=== PATIENT | female | born 1930 | race Hispanic/Latino ===

== ENCOUNTER 2019-10-01 14:54 | Inpatient (IN) | payer MEDICARE, OTHER ==
[2019-10-02] MEDS ORDERED: Lisinopril 10 MG TAB PO SCH (11:15)
[2019-10-02] MEDS ORDERED: Potassium Chloride 20 MEQ TAB PO SCH (11:15)
[2019-10-02] MEDS ORDERED: Ferrous Sulfate 325 MG TAB PO SCH (11:15)
[2019-10-02] MEDS ORDERED: Aspirin 81 mg Enteric Coated Tablet PO SCH (11:15)
[2019-10-02] MEDS ORDERED: Furosemide 20 MG TAB PO SCH (11:15)
[2019-10-02] MEDS ORDERED: Azithromycin 250 MG TAB PO SCH (11:15)
[2019-10-02] MEDS ORDERED: Prevnar 13-Val Conj/PF 0.5 ML SYRINGE IM ONE (18:15)
[2019-10-02] MEDS: Atorvastatin Calcium 10 MG TAB PO SCH (20:56)
[2019-10-02] MEDS ORDERED: SIMVASTATIN 20 MG PO SCH (21:00)
[2019-10-03] MEDS ORDERED: Non-Formulary Item 1 EACH (Ferrous Sulfate [Iron] 325 MG) PO SCH (09:00)
[2019-10-03] MEDS: Ferrous Sulfate 325 MG TAB PO SCH (09:16)
[2019-10-03] MEDS: Potassium Chloride 20 MEQ TAB PO SCH (09:17)
[2019-10-03] MEDS: Aspirin 81 mg Enteric Coated Tablet PO SCH (09:17)
[2019-10-03] MEDS: Furosemide 20 MG TAB PO SCH (09:18)
[2019-10-03] MEDS: Lisinopril 10 MG TAB PO SCH (09:18)
[2019-10-03] MEDS: Azithromycin 250 MG TAB PO SCH (09:18)
[2019-10-03] MEDS: Atorvastatin Calcium 10 MG TAB PO SCH (20:32)
[2019-10-03] MEDS: Acetaminophen 325 MG TAB PO PRN (20:32)
[2019-10-04] MEDS: Aspirin 81 mg Enteric Coated Tablet PO SCH (07:48)
[2019-10-04] MEDS: Ferrous Sulfate 325 MG TAB PO SCH (07:48)
[2019-10-04] MEDS: Potassium Chloride 20 MEQ TAB PO SCH (07:48)
[2019-10-04] MEDS: Lisinopril 10 MG TAB PO SCH (07:49)
[2019-10-04] MEDS: Furosemide 20 MG TAB PO SCH (07:49)
[2019-10-04] MEDS: Azithromycin 250 MG TAB PO SCH (07:49)
[2019-10-04] MEDS: Acetaminophen 325 MG TAB PO PRN (07:49)
[2019-10-04] MEDS: Atorvastatin Calcium 10 MG TAB PO SCH (21:00)
[2019-10-05] MEDS: Ferrous Sulfate 325 MG TAB PO SCH (08:30)
[2019-10-05] MEDS: Azithromycin 250 MG TAB PO SCH (08:30)
[2019-10-05] MEDS: Aspirin 81 mg Enteric Coated Tablet PO SCH (08:30)
[2019-10-05] MEDS: Potassium Chloride 20 MEQ TAB PO SCH (08:30)
[2019-10-05] MEDS: Lisinopril 10 MG TAB PO SCH ×2 (08:30→20:16)
[2019-10-05] MEDS: Furosemide 20 MG TAB PO SCH (08:30)
[2019-10-05] MEDS: Atorvastatin Calcium 10 MG TAB PO SCH (20:15)
[2019-10-05] MEDS: Acetaminophen 325 MG TAB PO PRN (20:16)
[2019-10-06 06:14] LABS: ALT (SGPT) 25 U/L (8-55); AST (SGOT) 27 U/L (5-34); Alkaline Phosphatase 95 U/L (40-110); Anion Gap 13 mmol/L (10-20); BUN (Urea Nitrogen) 14 mg/dL (9.8-20.1); Bilirubin, Total 0.6 mg/dL (0.2-1.2); Calc. Creatinine Clearance 60 mL/min (70-130); Calcium 8.8 mg/dL (7.8-10.44); Carbon Dioxide 23 mmol/L (23-31); Chloride 99 mmol/L (98-107); Estimated GFR-MDRD 77; Globulin 3.3 g/dL (2.4-3.5); Glucose 97 mg/dL (83-110); Protein, Total 6.3 g/dL (6.0-8.3); Sodium 131 mmol/L (136-145)
[2019-10-06 06:33] LABS: Band 2 % (5-11); Eosinophils 2 % (0-10); Hemoglobin 13.4 g/dL (12.0-16.0); Lymphocytes 18 % (21-51); MDiff Complete? YES; Mean Corpuscular HGB CONC 29.8 g/dL (32.0-36.0); Mean Corpuscular Hemoglobin 26.2 pg (27.0-31.0); Mean Corpuscular Volume 88.1 fL (78.0-98.0); Mean Platelet Volume 8.2 fL (7.4-10.4); Metamyelocyte 1 % (0-0); Monocytes 10 % (0-10); Neutrophil 67 % (42-75); Platelet Count 237 thou/uL (130-400); Platelet Morphology Comment Appears Adequate; RBC Morphology Normal; Red Blood Cell (RBC) Count 5.12 mill/uL (4.20-5.40); White Blood Cell (WBC) Count 6.2 thou/uL (4.8-10.8)
[2019-10-06] MEDS: Ferrous Sulfate 325 MG TAB PO SCH (09:06)
[2019-10-06] MEDS: Azithromycin 250 MG TAB PO SCH (09:07)
[2019-10-06] MEDS: Potassium Chloride 20 MEQ TAB PO SCH (09:07)
[2019-10-06] MEDS: Furosemide 20 MG TAB PO SCH (09:07)
[2019-10-06] MEDS: Lisinopril 10 MG TAB PO SCH ×2 (09:07→20:45)
[2019-10-06] MEDS: Aspirin 81 mg Enteric Coated Tablet PO SCH (09:07)
[2019-10-06] MEDS: Acetaminophen 325 MG TAB PO PRN (20:44)
[2019-10-06] MEDS: Atorvastatin Calcium 10 MG TAB PO SCH (20:45)
[2019-10-07] MEDS: Aspirin 81 mg Enteric Coated Tablet PO SCH (09:29)
[2019-10-07] MEDS: Ferrous Sulfate 325 MG TAB PO SCH (09:30)
[2019-10-07] MEDS: Azithromycin 250 MG TAB PO SCH (09:31)
[2019-10-07] MEDS: Potassium Chloride 20 MEQ TAB PO SCH (09:31)
[2019-10-07] MEDS: Furosemide 20 MG TAB PO SCH (09:31)
[2019-10-07] MEDS: Lisinopril 10 MG TAB PO SCH ×2 (09:32→21:00)
[2019-10-07] MEDS: Acetaminophen 325 MG TAB PO PRN ×2 (10:48→16:05)
[2019-10-07] MEDS: Atorvastatin Calcium 10 MG TAB PO SCH (21:01)
[2019-10-08] MEDS: Potassium Chloride 20 MEQ TAB PO SCH (08:56)
[2019-10-08] MEDS: Aspirin 81 mg Enteric Coated Tablet PO SCH (08:56)
[2019-10-08] MEDS: Ferrous Sulfate 325 MG TAB PO SCH (08:56)
[2019-10-08] MEDS: Azithromycin 250 MG TAB PO SCH (08:57)
[2019-10-08] MEDS: Furosemide 20 MG TAB PO SCH (08:57)
[2019-10-08] MEDS: Lisinopril 10 MG TAB PO SCH ×2 (08:57→20:39)
[2019-10-08] MEDS: Atorvastatin Calcium 10 MG TAB PO SCH (20:39)
[2019-10-09] MEDS: Furosemide 20 MG TAB PO SCH (08:31)
[2019-10-09] MEDS: Azithromycin 250 MG TAB PO SCH (08:31)
[2019-10-09] MEDS: Ferrous Sulfate 325 MG TAB PO SCH (08:31)
[2019-10-09] MEDS: Lisinopril 10 MG TAB PO SCH (08:31)
[2019-10-09] MEDS: Aspirin 81 mg Enteric Coated Tablet PO SCH (08:31)
[2019-10-09] MEDS: Potassium Chloride 20 MEQ TAB PO SCH (08:31)
[2019-10-09] MEDS ORDERED: Lisinopril 10 MG TAB PO SCH ×2 (09:37→10:45)
[2019-10-09] MEDS ORDERED: Lisinopril 20 MG TAB PO SCH (09:45)
[2019-10-09] MEDS: Atorvastatin Calcium 10 MG TAB PO SCH (22:42)
[2019-10-09] MEDS: Lisinopril 20 MG TAB PO SCH (22:42)
[2019-10-10] MEDS: Aspirin 81 mg Enteric Coated Tablet PO SCH (07:37)
[2019-10-10] MEDS: Potassium Chloride 20 MEQ TAB PO SCH (07:38)
[2019-10-10] MEDS: Ferrous Sulfate 325 MG TAB PO SCH (07:38)
[2019-10-10] MEDS: Lisinopril 20 MG TAB PO SCH ×3 (07:38→21:04)
[2019-10-10] MEDS: Furosemide 20 MG TAB PO SCH (07:39)
[2019-10-10] MEDS: Acetaminophen 325 MG TAB PO PRN ×3 (17:10→21:04)
[2019-10-10] MEDS: Atorvastatin Calcium 10 MG TAB PO SCH ×2 (20:59→21:05)
[2019-10-11] MEDS: Potassium Chloride 20 MEQ TAB PO SCH (08:38)
[2019-10-11] MEDS: Ferrous Sulfate 325 MG TAB PO SCH (08:38)
[2019-10-11] MEDS: Aspirin 81 mg Enteric Coated Tablet PO SCH (08:38)
[2019-10-11] MEDS: Furosemide 20 MG TAB PO SCH (08:39)
[2019-10-11] MEDS: Lisinopril 20 MG TAB PO SCH ×2 (08:39→21:01)
[2019-10-11] MEDS: Acetaminophen 325 MG TAB PO PRN (08:39)
[2019-10-11] MEDS: Atorvastatin Calcium 10 MG TAB PO SCH (21:01)
[2019-10-12] MEDS: Ferrous Sulfate 325 MG TAB PO SCH (08:47)
[2019-10-12] MEDS: Aspirin 81 mg Enteric Coated Tablet PO SCH (08:48)
[2019-10-12] MEDS: Furosemide 20 MG TAB PO SCH (08:48)
[2019-10-12] MEDS: Potassium Chloride 20 MEQ TAB PO SCH (08:48)
[2019-10-12] MEDS: Lisinopril 20 MG TAB PO SCH ×2 (08:48→20:25)
[2019-10-12] MEDS: Acetaminophen 325 MG TAB PO PRN ×2 (08:48→20:27)
[2019-10-12] MEDS: Atorvastatin Calcium 10 MG TAB PO SCH (20:25)
[2019-10-13] MEDS: Aspirin 81 mg Enteric Coated Tablet PO SCH (08:39)
[2019-10-13] MEDS: Ferrous Sulfate 325 MG TAB PO SCH (08:40)
[2019-10-13] MEDS: Lisinopril 20 MG TAB PO SCH ×2 (08:40→20:32)
[2019-10-13] MEDS: Potassium Chloride 20 MEQ TAB PO SCH (08:40)
[2019-10-13] MEDS: Furosemide 20 MG TAB PO SCH (08:41)
[2019-10-13 11:30] VITALS: BMI 29.4
[2019-10-13] MEDS: Acetaminophen 325 MG TAB PO PRN (20:31)
[2019-10-13] MEDS: Atorvastatin Calcium 10 MG TAB PO SCH (20:32)
[2019-10-14] MEDS: Aspirin 81 mg Enteric Coated Tablet PO SCH (08:34)
[2019-10-14] MEDS: Potassium Chloride 20 MEQ TAB PO SCH (08:34)
[2019-10-14] MEDS: Ferrous Sulfate 325 MG TAB PO SCH (08:34)
[2019-10-14] MEDS: Lisinopril 20 MG TAB PO SCH ×2 (08:34→20:30)
[2019-10-14] MEDS: Furosemide 20 MG TAB PO SCH (08:35)
[2019-10-14] MEDS: Acetaminophen 325 MG TAB PO PRN ×2 (09:09→20:31)
[2019-10-14] MEDS: Atorvastatin Calcium 10 MG TAB PO SCH (20:30)
[2019-10-15] MEDS: Potassium Chloride 20 MEQ TAB PO SCH (08:48)
[2019-10-15] MEDS: Lisinopril 20 MG TAB PO SCH ×2 (08:48→21:31)
[2019-10-15] MEDS: Ferrous Sulfate 325 MG TAB PO SCH (08:49)
[2019-10-15] MEDS: Aspirin 81 mg Enteric Coated Tablet PO SCH (08:49)
[2019-10-15] MEDS: Furosemide 20 MG TAB PO SCH (08:49)
[2019-10-15] MEDS: Acetaminophen 325 MG TAB PO PRN ×3 (12:18→21:34)
[2019-10-15] MEDS: Atorvastatin Calcium 10 MG TAB PO SCH (21:31)
[2019-10-16] MEDS: Acetaminophen 325 MG TAB PO PRN ×2 (04:36→20:58)
[2019-10-16] MEDS: Lisinopril 20 MG TAB PO SCH ×2 (08:49→20:58)
[2019-10-16] MEDS: Potassium Chloride 20 MEQ TAB PO SCH (08:50)
[2019-10-16] MEDS: Ferrous Sulfate 325 MG TAB PO SCH (08:51)
[2019-10-16] MEDS: Furosemide 20 MG TAB PO SCH (08:51)
[2019-10-16] MEDS: Aspirin 81 mg Enteric Coated Tablet PO SCH (08:51)
[2019-10-16] MEDS: Atorvastatin Calcium 10 MG TAB PO SCH (20:58)
[2019-10-17] MEDS: Potassium Chloride 20 MEQ TAB PO SCH (09:25)
[2019-10-17] MEDS: Lisinopril 20 MG TAB PO SCH ×2 (09:26→20:14)
[2019-10-17] MEDS: Furosemide 20 MG TAB PO SCH (09:26)
[2019-10-17] MEDS: Ferrous Sulfate 325 MG TAB PO SCH (09:26)
[2019-10-17] MEDS: Aspirin 81 mg Enteric Coated Tablet PO SCH (09:26)
[2019-10-17] MEDS: Atorvastatin Calcium 10 MG TAB PO SCH (20:14)
[2019-10-17] MEDS: Acetaminophen 325 MG TAB PO PRN (20:14)
[2019-10-18 07:01] VITALS: TEMP 97.8
[2019-10-18] MEDS: Ferrous Sulfate 325 MG TAB PO SCH (08:25)
[2019-10-18] MEDS: Furosemide 20 MG TAB PO SCH (08:26)
[2019-10-18] MEDS: Lisinopril 20 MG TAB PO SCH (08:26)
[2019-10-18] MEDS: Potassium Chloride 20 MEQ TAB PO SCH (08:26)
[2019-10-18] MEDS: Aspirin 81 mg Enteric Coated Tablet PO SCH (08:26)
[2019-10-18 08:28] VITALS: BP 135/63
== END 2019-10-18 10:15 | disposition home health service (06) | DRG 177 ==
LOC: BURMED 16:44
PROVIDERS: ADMIT Family Medicine; ATTEND Family Medicine
PROC: 8E0ZXY6 Isolation (ICD-10-PCS; principal; 2019-10-01)
DX: U07.1 COVID-19 (principal); J12.89 Other viral pneumonia; G93.41 Metabolic encephalopathy; N39.0 Urinary tract infection, site not specified; I50.32 Chronic diastolic (congestive) heart failure; E87.1 Hypo-osmolality and hyponatremia; I11.0 Hypertensive heart disease with heart failure; E78.5 Hyperlipidemia, unspecified; R29.6 Repeated falls; R53.81 Other malaise; F03.90 Unspecified dementia, unspecified severity, without behavioral disturbance, psychotic disturbance, mood disturbance, and anxiety; K21.9 Gastro-esophageal reflux disease without esophagitis; F41.9 Anxiety disorder, unspecified; F32.9 Major depressive disorder, single episode, unspecified; I48.91 Unspecified atrial fibrillation; Z79.01 Long term (current) use of anticoagulants; Z90.49 Acquired absence of other specified parts of digestive tract; Z90.710 Acquired absence of both cervix and uterus
CPT/HCPCS: 80053; 85025